=== PATIENT | male | born 1990 | race African-American/Black ===

== ENCOUNTER 2023-03-18 21:59 | Emergency (ER) | payer BC ==
[2023-03-18] MEDS ORDERED: Ketorolac Tromethamine 30 MG/ML VIAL ONE (22:47)
== END 2023-03-18 23:54 | disposition home or self-care (01) ==
LOC: CSHERS 21:59
DX: S93.125A Dislocation of metatarsophalangeal joint of left lesser toe(s), initial encounter (principal); Y93.67 Activity, basketball
CPT/HCPCS: 28470; 96372; J1885